=== PATIENT | male | born 1940 | race Caucasian/White ===

== ENCOUNTER 2022-03-31 17:19 | Inpatient (IN) | payer OTHER, MEDICAID ==
[~2022-03-31] VITALS: Ht 167.6 cm; Wt 74.8 kg
[2022-03-31] MEDS: NACL 0.9% 1,000 ML IV SCH (00:03)
[2022-03-31 17:30] VITALS: BP 135/70
--- NOTE | 2022-03-31 17:33 | NUR ---
PT BIBA BLS TO BED 6
[2022-03-31] MEDS ORDERED: NACL 0.9% 1,000 ML IV ONE (17:45)
[2022-03-31 18:20] LABS: BASOPHILS # (AUTO) 0.1 K/uL (0.00-0.22); EOSINOPHILS % (AUTO) 0.2 % (0.0-4.0); HEMATOCRIT 22.8 % (36-52); HEMOGLOBIN 7.7 g/dL (12.0-18.0); LYMPHOCYTES # (AUTO) 0.9 K/uL (2.0-11.5); LYMPHOCYTES % (AUTO) 7.7 % (20.5-51.1); MEAN CORPUSCULAR HEMOGLOBIN 30 pg (27-31); MEAN CORPUSCULAR HGB CONC 34 g/dL (33-37); MONOCYTES # (AUTO) 1.1 K/uL (0.8-1.0); NEUTROPHILS # (AUTO) 9.1 K/uL (1.8-7.7); NEUTROPHILS % (AUTO) 81.1 % (42.2-75.2); PLATELET COUNT (AUTO) 301 K/uL (140-450); RED BLOOD CELL COUNT(AUTO) 2.53 MIL/uL (4.20-6.10); RED CELL DISTRIBUTION WIDTH 19.5 % (11.6-13.7); WHITE BLOOD COUNT (AUTO) 11.2 K/uL (4.8-10.8)
[2022-03-31 18:46] LABS: ANION GAP 15.9 (8-16); ASPARTATE AMINOTRANSFERASE 147 U/L (15-37); CARBON DIOXIDE 25.2 mmol/L (21-32); CHLORIDE 106 mmol/L (98-107); CREATININE 1.7 mg/dL (0.6-1.3); GLUCOSE 136 mg/dL (74-106); LIPASE 38 U/L (73-393); POTASSIUM 4.1 mmol/L (3.5-5.1); SODIUM SERUM 143 mmol/L (136-145); TOTAL BILIRUBIN 2.4 mg/dL (0.0-1.0); UREA NITROGEN, BLOOD 44 mg/dL (7-18)
--- NOTE | 2022-03-31 19:45 | NUR ---
ASSUMED CARE OF PT AT THIS TIME. PT IN POSITION OF COMFORT. DENIES ANY NEEDS OR PAIN AT THIS TIME. VSS AWAITING ADMISSION AND BED ASSIGNMENT.
--- NOTE | 2022-03-31 22:12 | NUR ---
PT CLEANED AT THIS TIME HE WAS INCONTINENT OF URINE. LINEN ALSO CHANGED AT THIS TIME. URINE COLLECTED AND SENT TO LAB
[2022-03-31 22:18] LABS: APPEARANCE,URINE CLEAR (CLEAR); BILIRUBIN,URINE NEGATIVE (NEGATIVE); BLOOD, URINE 1+ (NEGATIVE); COLOR,URINE YELLOW (YELLOW); LEUKOCYTE ESTERASE ,URINE NEGATIVE (NEGATIVE); NITRITE, URINE NEGATIVE (NEGATIVE); PH,URINE 5.5 (5.0-9.0); UGLUCOSE NEGATIVE (NEGATIVE)
[2022-03-31] MEDS ORDERED: ACETAMINOPHEN 325 MG TAB PO PRN (22:20)
[2022-03-31] MEDS ORDERED: HYDROcodone/APAP 7.5/325 MG 1 TAB PO PRN (22:20)
[2022-03-31] MEDS ORDERED: guaiFENesin DM 200/20 MG-10 ML 10 ML UDC PO PRN (22:20)
[2022-03-31] MEDS ORDERED: ONDANSETRON 4 MG/2 ML VIAL IM/IVP PRN (22:20)
[2022-03-31] MEDS ORDERED: ZOLPIDEM 5 MG TAB PO PRN (22:20)
[2022-03-31] MEDS ORDERED: DOCUSATE SODIUM 100 MG GELCAP PO PRN (22:20)
[2022-03-31] MEDS ORDERED: POTASSIUM CHLORIDE 10 MEQ TABER PO PRN (22:20)
--- NOTE | 2022-03-31 22:29 | NUR ---
PROVIDED SANDWICH TO PT
[2022-03-31 22:33] LABS: RBC,URINE 0-5 /HPF (0-5); WBC,URINE 0-5 /HPF (0-5)
[2022-03-31 22:55] LABS: CHOL/HDL RATIO 3.5 (1-4.5); FREE T4 (FREE THYROXINE) 1.45 ng/dL (0.76-1.46); MAGNESIUM 2.1 mg/dL (1.8-2.4); THYROID STIMULATING HORMONE 0.7 uIU/mL (0.34-3.74)
[2022-03-31 22:56] LABS: PROTHROMBIN TIME 11.6 secs (10.8-13.4)
--- NOTE | 2022-04-01 | NUR ---
Patient appears to be resting comfortably in bed. Vital Signs within normal limits. Respirations even and unlabored.
--- NOTE | 2022-04-01 03:00 | NUR ---
Patient appears to be resting comfortably in bed. Vital Signs within normal limits. Respirations even and unlabored.
--- NOTE | 2022-04-01 04:30 | NUR ---
Patient appears to be resting comfortably in bed. Vital Signs within normal limits. Respirations even and unlabored.
--- NOTE | 2022-04-01 07:25 | NUR ---
REPORT TO MAYKEL VAUGHN
--- NOTE | 2022-04-01 07:25 | NUR ---
Report received from JOHANA Vann.
[2022-04-01] MEDS: NACL 0.9% 1,000 ML IV SCH ×3 (07:28→23:49)
[2022-04-01 07:37] LABS: BASOPHILS # (AUTO) 0.1 K/uL (0.00-0.22); BASOPHILS % (AUTO) 0.8 % (0.0-2.0); EOSINOPHILS # (AUTO) 0.1 K/uL (0-0.4); EOSINOPHILS % (AUTO) 0.8 % (0.0-4.0); HEMATOCRIT 22.7 % (36-52); HEMOGLOBIN 7.7 g/dL (12.0-18.0); LYMPHOCYTES # (AUTO) 1.6 K/uL (2.0-11.5); LYMPHOCYTES % (AUTO) 12.5 % (20.5-51.1); MEAN CORPUSCULAR HEMOGLOBIN 31 pg (27-31); MEAN CORPUSCULAR HGB CONC 34 g/dL (33-37); MEAN CORPUSCULAR VOLUME 90.7 fL (80-94); MONOCYTES # (AUTO) 1.8 K/uL (0.8-1.0); MONOCYTES % (AUTO) 14.6 % (1.7-9.3); NEUTROPHILS # (AUTO) 8.9 K/uL (1.8-7.7); NEUTROPHILS % (AUTO) 71.3 % (42.2-75.2); PLATELET COUNT (AUTO) 281 K/uL (140-450); RED BLOOD CELL COUNT(AUTO) 2.51 MIL/uL (4.20-6.10); WHITE BLOOD COUNT (AUTO) 12.5 K/uL (4.8-10.8)
--- NOTE | 2022-04-01 07:37 | NUR ---
Jennifer walked to lab and handed to CPT. Marychuy
[2022-04-01] MEDS: PANTOPRAZOLE 40 MG TABEC PO SCH (10:05)
--- NOTE | 2022-04-01 10:08 | NUR ---
Gloria Lorenz (sister) [phone] verbal consent received for status update. Called pt straight to voicemail. Pt made aware.
--- NOTE | 2022-04-01 10:14 | NUR ---
Patient resting in high-fowlres with vehicle monitor technician. Patient denies pain. Bed locked in lowest position, side rails x 1.
--- NOTE | 2022-04-01 10:18 | NUR ---
MD at bedside with mammography technologist evaluating patient.
[2022-04-01 10:58] LABS: CARBON DIOXIDE 27.8 mmol/L (21-32); CHLORIDE 109 mmol/L (98-107); CREATININE 1.6 mg/dL (0.6-1.3); GLUCOSE 117 mg/dL (74-106); POTASSIUM 3.8 mmol/L (3.5-5.1); SODIUM SERUM 142 mmol/L (136-145); UREA NITROGEN, BLOOD 38 mg/dL (7-18)
--- NOTE | 2022-04-01 11:30 | NUR ---
Patient assisted with diaper change; noted with urinary incontinence. Perineal care provided. All needs met.
--- NOTE | 2022-04-01 12:45 | NUR ---
Patient wheelchair assisted to restroom for bowel movement. Patient produced one brown solid/form stool with small amount of bright red blood surrounding stool. Pt W/C assisted to bed 06 and placed back onto cardiac monitior. All pt needs met.
--- NOTE | 2022-04-01 14:32 | NUR ---
Pt resting in semi-fowlers position with both eyes closed. media monitor in place. VSS. Respiratoins even/unlabored. Bed locked in lowest position, side rails x 1.
--- NOTE | 2022-04-01 14:46 | NUR ---
Spoke with Heidi from case management regarding rn social work consultation. Heidi states will get into contact with Dr. Castle for consultation specifics and will send someone down to ER for eval.
--- NOTE | 2022-04-01 16:33 | NUR ---
PATIENT HAS BEEN SCREENED AND CATEGORIZED MODERATE NUTRITION RISK. PATIENT WILL BE SEEN WITHIN 3-5 DAYS OF ADMISSION. REVIEWED BY JENNIFER ARRIAGA RD
--- NOTE | 2022-04-01 17:06 | NUR ---
Verbal consent received from patient to speak with Armani, Clinical Specialist from [facility]. Advised Armani patient is still holding in ER. All questions answered. [phone]
--- NOTE | 2022-04-01 18:15 | NUR ---
Dinner at bedside. Patient sitting upright completing meal at this time. All pt needs met.
--- NOTE | 2022-04-01 19:01 | NUR ---
Patient with urinary incontinence. Linens, diaper changed. Perineal care applied.
--- NOTE | 2022-04-01 21:00 | NUR ---
REPORT GIVEN TO JOHANA ALEXANDRE. [id number]
--- NOTE | 2022-04-01 21:06 | NUR ---
Patient will be admitted to care of . Admited to M/S. Will go to [id number]. Belongings list completed. Report to JOHANA ALEXANDRE.
--- NOTE | 2022-04-01 21:10 | NUR ---
PATIENT ADMITTED FROM ED, CAME VIA GURNEY. PATIENT IS AWAKE, ALERT AND ORIENTED X4, DENIES PAIN, NO SIGNS OF DISTRESS NOTED, BREATHING EVEN AND NON LABORED ON ROOM AIR. PATIENT ABLE TO TRANSFER TO BED WITH LIMITED ASSIST. PATIENT HAS IV ACCESS SITE ON RIGHT AC G 18, INTACT AND PATENT. PATIENT IS CONTINENT, URINAL GIVEN. CALL LIGHT WITHIN REACH. BED IN LOW AND LOCKED POSITION.
--- NOTE | 2022-04-01 22:00 | NUR ---
PATIENT GIVEN SNACKS. CALL LIGHT WITHIN REACH. SAFETY MEASURES IN PLACE.
--- NOTE | 2022-04-02 02:05 | NUR ---
CHECK ON PATIENT, PT IS ASLEEP, BREATHING EVEN AND NON LABORED ON ROOM AIR, NO SIGNS OF PAIN/DISCOMFORT NOTED, CALL LIGHT WITHIN REACH, BED IN LOW AND LOCKED POSITION. WILL CONTINUE TO MONITOR THE PATIENT.
[2022-04-02 04:00] VITALS: BP 119/67
--- NOTE | 2022-04-02 04:15 | NUR ---
MORNING CARE DONE, PATIENT DENIES PAIN. CALL LIGHT WITHIN REACH. WILL CONTINUE TO MONITOR THE PATIENT.
[2022-04-02] MEDS: NACL 0.9% 1,000 ML IV SCH (05:46)
[2022-04-02 07:02] LABS: BASOPHILS # (AUTO) 0.1 K/uL (0.00-0.22); BASOPHILS % (AUTO) 0.8 % (0.0-2.0); EOSINOPHILS # (AUTO) 0.2 K/uL (0-0.4); EOSINOPHILS % (AUTO) 2.3 % (0.0-4.0); LYMPHOCYTES # (AUTO) 1.4 K/uL (2.0-11.5); LYMPHOCYTES % (AUTO) 16.4 % (20.5-51.1); MEAN CORPUSCULAR HEMOGLOBIN 31 pg (27-31); MEAN CORPUSCULAR HGB CONC 34 g/dL (33-37); MEAN CORPUSCULAR VOLUME 89.9 fL (80-94); MONOCYTES # (AUTO) 1.1 K/uL (0.8-1.0); MONOCYTES % (AUTO) 12.5 % (1.7-9.3); PLATELET COUNT (AUTO) 276 K/uL (140-450); RED BLOOD CELL COUNT(AUTO) 2.18 MIL/uL (4.20-6.10); RED CELL DISTRIBUTION WIDTH 20.1 % (11.6-13.7); WHITE BLOOD COUNT (AUTO) 8.8 K/uL (4.8-10.8)
[2022-04-02 07:16] LABS: ANION GAP 12.2 (8-16); CHLORIDE 110 mmol/L (98-107); CREATININE 1.3 mg/dL (0.6-1.3); GLUCOSE 111 mg/dL (74-106); POTASSIUM 3.2 mmol/L (3.5-5.1); SODIUM SERUM 143 mmol/L (136-145); UREA NITROGEN, BLOOD 35 mg/dL (7-18)
--- NOTE | 2022-04-02 07:28 | NUR ---
ENDORSED PT TO DAY NURSE FOR CONTINUITY OF CARE. NEEDS MET THROUGHOUT THE SHIFT. PT IN STABLE CONDITION.
[2022-04-02 08:00] VITALS: BP 142/82
[2022-04-02 08:07] LABS: T4 (THYROXINE) 6.9 ug/dL (4.5-12.0)
[2022-04-02 08:12] LABS: HEMATOCRIT 19.6 % (36-52); HEMOGLOBIN 6.7 g/dL (12.0-18.0)
[2022-04-02] MEDS: PANTOPRAZOLE 40 MG TABEC PO SCH (09:51)
--- NOTE | 2022-04-02 11:10 | NUR ---
MET WITH THE PATIENT AT THE BEDSIDE TO GATHER INFORMATION. PATIENT IS AWAKE, ALERT, ORIENTED TO PERSON AND PLACE. PATIENT SPEAKS AND COMPREHEND UKRAINIAN WELL. HOWEVER, PATIENT REQUESTED TO SPEAK IN OUR LANGUAGE (TAGALOG). PATIENT CLAIMED THAT HE IS HOMELESS SINCE 2019, LIVES IN A [facility] PATIENT CLAIMED THAT HE CANNOT RECALL THE ADDRESS. PATIENT STATED THAT HE CAME TO [place] IN 1989 (PETITIONED BY HER SISTER). HOWEVER, HIS SISTER LIVES IN [facility] AND HAVE NOT SPOKEN TO HER IN YEARS. PER PATIENT, HE WORKED SINCE 1989 UNTIL HIM AND HIS IN 2019. MD'S RECOMMENDATIONS FOR HOSPICE EVALUATION DISCUSSED AND PATIENT STATED THAT HE WANT TO MAKE THE DECISION WITH HER SISTER TIANNA MOLINA WHO LIVES IN [place]. THIS CM ASKED FOR HIS SISTER'S NUMBER. EVETTE STATED THAT HE CANNOT EXACTLY REMEMBER THE NUMBER BUT TO TRY [phone] OR [phone]. HE STATED IT VERY IMPORTANT TO CONTACT HIS SISTER TIANNA PARKER. INFORMED PATIENT THAT THIS BRASS INSTRUMENT REPAIR TECHNICIAN WILL CALL BOTH NUMBERS AND WILL GET BACK TO HIM IF THIS CM IS ABLE TO GET A HOLD OF HER SISTER. THIS CM CONTACTED BOTH NUMBERS PROVIDED FOR THE PATIENT'S SISTER TIANNA PARKER, NO ANSWER. LEFT MESSAGE REQUESTING A CALL BACK. 1120: RECEIVED A CALL FROM CHERYL E M ASSEMBLER AT [facility] [phone]. PER CHERYL, HE HAS BEEN HELPING THE PATIENT FOR A WHILE NOW. INFORMED CHERYL THAT THE PATIENT IS REQUESTING TO CALL HIS SISTER TIANNA PARKER BUT NOT SURE IF THE NUMBER PROVIDED IS CORRECT. PER CHERYL, HE WILL CONTACT THE [facility] AND WILL ASK FOR THE NUMBER. 1135: RECEIVED A CALL FROM THE PATIENT'S SISTER TIANNA MOLINA AND CONFIRMED THE NUMBER [phone]. TIANNA PARKER INFORMED THAT THE PATIENT REQUESTED THIS CM THAT EVETTE LET HER KNOW THAT HE IS IS THE HOSPITAL. PER TIANNA PARKER SHE IS NOT AWARE OF WHAT IS GOING ON WITH HER BROTHER. KEITH STATED THAT DURING THEIR LAST CONVERSATION, EVETTE MENTIONED TO HER THAT THEY FIND SOMETHING ON HIS STOMACH BUT DID NOT ELABORATE. PER KEITH, SHE CAN BE ADDED THE CONTACT INFO FOR THE PATIENT. PARKER ALSO STATED THAT SHE WILL COME TO VISIT THE PATIENT TOMORROW THAT SHE JUST GOT DC FROM THE [facility]OS[facility] DUE TO BREAST CANCER. THIS CM PROVIDED TIANNA PARKER WITH CM AND 'S CONTACT INFO FOR TO CALL TO MEET WITH THEM. TIANNA PARKER WAS APPRECIATIVE OF THE CALL. ISABELA HOOK UPDATED. 113 Addendum: 04/02/22 at 1509 by Winnie Ring CM MET WITH CHERYL ALVARADO OF [facility]. PER CHERYL, HE IS FOLLOWING THE PATIENT FOR SUICIDAL IDEATION BACK IN 2020. CHERYL ALSO STATED THAT PATIENT'S WILL TO LIVE NOW IS STRONG. CHERYL ALSO STATED THAT PATIENT DOES NOT HAVE ANY MENTAL HEALTH DIAGNOSIS LIKE SCHIZOPHRENIA OR PARANOIA. PATIENT HAS MILD TO MODERATE DEPRESSION DUE TO FAMILY DYNAMICS. CHERYL REQUESTED TO BE PRESENT ONCE THE PATIENT'S SISTER TIANNA PARKER WILL BE HERE TOMORROW. ISABELA HOOK INFORMED. Addendum: 04/03/22 at 1222 by Winnie Ring CM MADE A FOLLOW UP CALL TO PATIENT'S SISTER TIANNA PARKER TRACY REGARDING DC PLANNING. PER TIANNA PARKER, SHE IS NOT BE ABLE TO COME TO THE HOSPITAL BUT IS OK TO HAVE A CALL BACK. Addendum: 04/03/22 at 1707 by Winnie Ring CM 1330: MET WITH THE PATIENT AT THE BEDSIDE TO UPDATE HIM THAT HIS SISTER KEITH IS NOT ABLE TO COME TO THE HOSPITAL AT THIS TIME AND REQUESTED TO CALL HER. PATIENT IS AGREEABLE TO CALL HIS SISTER. MADE A PHONE CALL TO TIANNA PARKER. PATIENT AND HIS SISTER TALKED. PATIENT'S SISTER REQUESTED TO SPEAK TO THE ATTENDING. INFORMED TIANNA PARKER, THAT I WILL INFORM THE ATTENDING. DR. CHÁVEZ INFORMED. WILL FOLLOW UP. Addendum: 04/03/22 at 1712 by Winnie Ring CM 1430: MADE A FOLLOW UP CALL TO PATIENT'S SISTER TIANNA PARKER AND IS IN AGREEMENT FOR HOSPICE EVALUATION AND DOES NOT HAVE ANY PREFERENCE. REFERRAL SENT TO [facility]. PER [facility], THEY WILL CONTACT THE FAMILY. WILL FOLLOW UP.
--- NOTE | 2022-04-02 14:20 | NUR ---
BLOOD TRANSFUSION STARTED. VITALS SIGNS STABLE
[2022-04-02 16:00] VITALS: BP 136/96
--- NOTE | 2022-04-02 19:04 | NUR ---
BLOOD TRANSFUSION COMPLETED. PATIENT TOLERATED WELL. STABLE AT THIS TIME. ALL NEEDS ANTICIPATED AND MET.
--- NOTE | 2022-04-02 19:30 | NUR ---
RECEIVED PATIENT LYING ON THE BED, HOB ELEVATED, PATIENT DENIES PAIN, DENIES SOB. ALL SAFETY PRECAUTIONS IN PLACE.
--- NOTE | 2022-04-02 21:30 | NUR ---
CHECK ON PATIENT, PATIENT IS AWAKE, ALERT AND ORIENTED, DENIES PAIN, NO SIGNS OF DISTRESS NOTED. PATIENT GIVEN SNACKS. CALL LIGHT WITHIN REACH.
--- NOTE | 2022-04-03 01:32 | NUR ---
PATIENT IS ASLEEP, NO SIGNS OF PAIN/DISCOMFORT NOTED, NO SIGNS OF DISTRESS NOTED. BREATHING EVEN AND NON LABORED. PATIENT'S URINAL EMPTIED, 100ML OF LIGHT YELLOW COLORED URINE. CALL LIGHT WITHIN REACH. BED IN LOW AND LOCKED POSITION.
[2022-04-03 04:00] VITALS: BP 138/86
--- NOTE | 2022-04-03 04:45 | NUR ---
MORNING CARE DONE, NO SOB NOTED, PATIENT DENIES PAIN. CALL LIGHT WITHIN REACH.
[2022-04-03 06:05] LABS: BASOPHILS # (AUTO) 0.1 K/uL (0.00-0.22); BASOPHILS % (AUTO) 0.6 % (0.0-2.0); EOSINOPHILS # (AUTO) 0.3 K/uL (0-0.4); HEMATOCRIT 24.4 % (36-52); HEMOGLOBIN 8.2 g/dL (12.0-18.0); LYMPHOCYTES # (AUTO) 1.2 K/uL (2.0-11.5); MEAN CORPUSCULAR HEMOGLOBIN 31 pg (27-31); MEAN CORPUSCULAR HGB CONC 33 g/dL (33-37); MEAN CORPUSCULAR VOLUME 91.1 fL (80-94); MONOCYTES % (AUTO) 12.6 % (1.7-9.3); NEUTROPHILS # (AUTO) 5.5 K/uL (1.8-7.7); NEUTROPHILS % (AUTO) 67.8 % (42.2-75.2); PLATELET COUNT (AUTO) 266 K/uL (140-450); RED BLOOD CELL COUNT(AUTO) 2.68 MIL/uL (4.20-6.10); RED CELL DISTRIBUTION WIDTH 18.9 % (11.6-13.7); WHITE BLOOD COUNT (AUTO) 8.1 K/uL (4.8-10.8)
[2022-04-03 06:46] LABS: ANION GAP 11.4 (8-16); CARBON DIOXIDE 23.2 mmol/L (21-32); CHLORIDE 110 mmol/L (98-107); CREATININE 1.2 mg/dL (0.6-1.3); GLUCOSE 107 mg/dL (74-106); POTASSIUM 3.6 mmol/L (3.5-5.1); SODIUM SERUM 141 mmol/L (136-145); UREA NITROGEN, BLOOD 25 mg/dL (7-18)
--- NOTE | 2022-04-03 07:21 | NUR ---
ENDORSED PATIENT TO DAY NURSE FOR CONTINUITY OF CARE. NEEDS MET THROUGHOUT THE SHIFT. PATIENT IN STABLE CONDITION.
--- NOTE | 2022-04-03 08:00 | NUR ---
PATIENT RECEIVED IN BED, A/OX3 FORGETFUL AT TIMES, NOT IN ANY FORM OF DISTRESS. DENIES ANY PAIN AT THIS TIME. ASSESSMENT DONE AND DOCUMENTED. PLAN OF CARE DISCUSSED. CALL LIGHT WITHIN REACH.
[2022-04-03] MEDS: PANTOPRAZOLE 40 MG TABEC PO SCH (09:06)
[2022-04-03 16:00] VITALS: BP 143/81
--- NOTE | 2022-04-03 19:25 | NUR ---
RECEIVED PT FROM AM NURSE FOR CONTINUITY OF CARE. PT IS STABLE
[2022-04-03 20:00] VITALS: BP 140/73
--- NOTE | 2022-04-04 | NUR ---
PATIENT ASLEEP, ALL SAFETMEASURES IN PLACE,CALL LIGHT WITHIN EASY REACH. NO SIGNS OF DISTRESS NOTED
[2022-04-04 04:00] VITALS: BP 137/71
--- NOTE | 2022-04-04 04:45 | NUR ---
PT DC TO [facility]. PT PICKED-UP BY TRANSPORT STAFF AND WHEELED OUT VIA [employer]. REMOVED IV CATHETER TIP INTACT. REMOVED ID WRIST BAND. ALL BELONGINGS TAKEN UPON DC. PT IS IN STABLE CONDITION. Addendum: 04/04/22 at 1650 by Latosha Izquierdo LVN WRONG TIME
[2022-04-04 06:11] LABS: BASOPHILS # (AUTO) 0.1 K/uL (0.00-0.22); BASOPHILS % (AUTO) 1.5 % (0.0-2.0); EOSINOPHILS # (AUTO) 0.4 K/uL (0-0.4); EOSINOPHILS % (AUTO) 5.4 % (0.0-4.0); HEMATOCRIT 26.2 % (36-52); LYMPHOCYTES # (AUTO) 1.1 K/uL (2.0-11.5); LYMPHOCYTES % (AUTO) 13.4 % (20.5-51.1); MEAN CORPUSCULAR HEMOGLOBIN 31 pg (27-31); MEAN CORPUSCULAR HGB CONC 34 g/dL (33-37); MEAN CORPUSCULAR VOLUME 91.5 fL (80-94); MONOCYTES # (AUTO) 0.8 K/uL (0.8-1.0); MONOCYTES % (AUTO) 9.9 % (1.7-9.3); NEUTROPHILS # (AUTO) 5.7 K/uL (1.8-7.7); NEUTROPHILS % (AUTO) 69.8 % (42.2-75.2); PLATELET COUNT (AUTO) 280 K/uL (140-450); RED BLOOD CELL COUNT(AUTO) 2.87 MIL/uL (4.20-6.10); RED CELL DISTRIBUTION WIDTH 18.9 % (11.6-13.7); WHITE BLOOD COUNT (AUTO) 8.1 K/uL (4.8-10.8)
[2022-04-04 06:37] LABS: CARBON DIOXIDE 24.7 mmol/L (21-32); CHLORIDE 108 mmol/L (98-107); CREATININE 1.2 mg/dL (0.6-1.3); GLUCOSE 121 mg/dL (74-106); POTASSIUM 3.7 mmol/L (3.5-5.1); SODIUM SERUM 141 mmol/L (136-145); UREA NITROGEN, BLOOD 24 mg/dL (7-18)
--- NOTE | 2022-04-04 07:25 | NUR ---
ENDORSED PT TO AM NURSE FOR CONTINUITY OF CARE.PT IS STABLE
--- NOTE | 2022-04-04 07:26 | NUR ---
RECEIVED REPORT FROM SERVICE AIDE NURSE KOJO FOR CONTINUITY OF CARE. PT SLEEPING, EASILY AROUSABLE BY VERBAL STIMULI. RESPIRATIONS EVEN AND UNLABORED ON RA. SKIN INTACT, WARM AND DRY TO TOUCH. CALL LIGHT WITHIN REACH. SAFETY PRECAUTIONS IN PLACE.
[2022-04-04] MEDS: PANTOPRAZOLE 40 MG TABEC PO SCH (08:54)
--- NOTE | 2022-04-04 08:54 | NUR ---
AM MEDICATIONS GIVEN. TOLERATING WELL.
--- NOTE | 2022-04-04 13:20 | NUR ---
RN SPOKE WITH SHAY[facility] AT [facility] ([phone]), THE PATIENT WILL BE PICKED UP BETWEEN [phone] BY [facility] ([phone]). VM LEFT FOR THE PATIENTS SISTER TIANNA ENDORSING THE TRANSFER, FACILITY INFORMATION ALSO GIVEN. PATIENT IS GOING TO ROOM 19B AT [facility] PER THEIR CHARGE NURSE MARGARITO. NUMBER TO CALL REPORT IS [phone].
[2022-04-04 13:47] VITALS: BP 138/64
--- NOTE | 2022-04-04 13:55 | NUR ---
INFORMED PT OF DC ORDER. PT VERBALIZED UNDERSTANDING.
--- NOTE | 2022-04-04 14:15 | NUR ---
CALLED [facility], REPORT GIVEN TO MARGARITO. PATIENT WILL [facility] AIR TRAFFIC CONTROL SUPER[facility] [facility] BETWEEN [phone].
--- NOTE | 2022-04-04 15:17 | NUR ---
DISCHARGE PAPERS DISCUSSED WITH THE PT. PT VERBALIZED UNDERSTANDING. DID AFTERNOON CARE. PT HAD BM. CHANGED BED LINENS, DIAPER AND GOWN. PT REMAINED CLEAN AND DRY.
--- NOTE | 2022-04-04 16:45 | NUR ---
PT DC TO [facility]. PT PICKED-UP BY TRANSPORT STAFF AND WHEELED OUT VIA GURNEY. REMOVED IV CATHETER TIP INTACT. REMOVED ID WRIST BAND. ALL BELONGINGS TAKEN UPON DC. PT IS IN STABLE CONDITION.
== END 2022-04-04 16:48 | disposition hospice, inpatient (51) | DRG 435 ==
LOC: MED 17:19 → MMU 17:33 → MTU 04-01 20:52
PROVIDERS: ADMIT Family Medicine; ATTEND Family Medicine
PROC: 30233N1 Transfusion of Nonautologous Red Blood Cells into Peripheral Vein, Percutaneous Approach (ICD-10-PCS; principal; 2022-04-02)
DX: C22.0 Liver cell carcinoma (principal); G93.41 Metabolic encephalopathy; N17.0 Acute kidney failure with tubular necrosis; K92.2 Gastrointestinal hemorrhage, unspecified; E86.0 Dehydration; K80.20 Calculus of gallbladder without cholecystitis without obstruction; Z20.822 Contact with and (suspected) exposure to COVID-19; E78.5 Hyperlipidemia, unspecified; E11.22 Type 2 diabetes mellitus with diabetic chronic kidney disease; N18.9 Chronic kidney disease, unspecified; Z59.00 Homelessness unspecified
CPT/HCPCS: 36415; 71045; 80048; 80053; 81001; 82150; 83036; 83690; 83735; 83880; 84100; 84436; 84439; 84443; 84479; 85025; 85610; 85730; 86886; 86900; 86901; 86920; 87081; 96360; 99285; J7030; P9016; Q0092; Q9967